=== PATIENT | female | born 1980 | race Caucasian/White ===

== ENCOUNTER 2022-01-23 10:53 | Emergency (ER) | payer BC, OTHER ==
[2022-01-23] MEDS ORDERED: Boostrix 0.5 ML (Tdap) VIAL (>/=7 yrs of age) ONE (11:01)
[2022-01-23] MEDS ORDERED: HYDROcodone/Acetaminophen 10/325 mg Tablet ONE (11:03)
[2022-01-23] MEDS ORDERED: Ibuprofen 800 MG TAB ONE (11:03)
[2022-01-23] MEDS ORDERED: Bupivacaine 0.5% 10 ML VIAL ONE (11:15)
[2022-01-23] MEDS ORDERED: Bacitracin 1 PK ONE (11:54)
== END 2022-01-23 12:21 | disposition home or self-care (01) ==
LOC: BURERS 10:53
DX: S92.422B Displaced fracture of distal phalanx of left great toe, initial encounter for open fracture (principal); Z23 Encounter for immunization; W20.8XXA Other cause of strike by thrown, projected or falling object, initial encounter
CPT/HCPCS: 12001; 90471; 90715; J3490

== ENCOUNTER 2022-02-02 12:46 | Emergency (ER) | payer BC | END 2022-02-02 13:30 | disposition home or self-care (01) | LOC: BURERS 12:46 | DX: S91.112D Laceration without foreign body of left great toe without damage to nail, subsequent encounter (principal); W26.8XXD Contact with other sharp object(s), not elsewhere classified, subsequent encounter ==